=== PATIENT | male | born 1935 | race Caucasian/White ===

== ENCOUNTER 2017-05-28 11:15 | Inpatient (IN) ==
[2017-05-23 13:04] LABS: Appearance,Urine CLEAR; Bilirubin,Urine NEG (NEG); Color,Urine YELLOW; Glucose,Urine (UA) NEGATIVE (NEG); Leukocyte Esterase,Urine NEG /uL (NEG); Nitrate,Urine NEG (NEG); Protein,Urine NEG (NEG); Specific Gravity,Urine 1.019 (1.000-1.035); Urine Blood NEG mg/dL (<0.03); Urobilinogen,Urine NEG (NEG)
[2017-05-23 15:09] LABS: Basophils # (Auto) 0 K/mcL (0.0-0.3); Basophils % (Auto) 0.5 % (0.0-2.0); Eosinophils # (Auto) 0.4 K/mcL (0.0-0.7); Eosinophils % (Auto) 4.7 % (0.0-7.0); Lymphocytes # (Auto) 2.1 K/mcL (1.5-4.8); Lymphocytes % (Auto) 22.4 % (15.5-49.0); Mean Cell Volume 95.3 fL (80.0-100.0); Mean Corpuscular HGB Conc 33.5 g/dL (31.0-36.0); Mean Corpuscular Hemoglobin 31.9 pg (26.0-34.0); Monocytes % (Auto) 10.4 % (1.0-12.0); Platelet Count 265 K/mcL (140-440); RBC 3.83 M/mcL (4.50-5.90); Red Cell Distribution Width 14.9 % (11.5-14.5)
[2017-05-23 15:57] LABS: Blood Urea Nitrogen 18 mg/dl (8-23)
[~2017-05-28 11:15] MED LIST: CELECOXIB 200 MG CAPSULE PO SCH; GLYCOPYRROLATE 0.2 MG/ML VIAL IV ONE; KETAMINE 100 MG/ML ML IV ONE; LIDOCAINE HCL/PF 100 MG/5 ML SYRINGE IV ONE; MIDAZOLAM 5 MG/5 ML VIAL IV ONE; ONDANSETRON 4 MG/2 ML VIAL IV ONE; PHENYLEPHRINE 10 MG/ML VIAL IV ONE; PREGABALIN 75 MG CAPSULE PO SCH; PROPOFOL 200 MG/20 ML VIAL IV ONE; SUCCINYLCHOLINE 20 MG/ML ML IV ONE; TRANEXAMIC ACID 1,000 MG/10 ML VIAL IV ONE; ceFAZolin 1 GM VIAL IV SCH; fentaNYL 100 MCG/2 ML VIAL IV ONE; oxyCODONE 10 MG TAB.ER.12H PO SCH
[2017-05-28] MEDS ORDERED: GENTAMICIN SULFATE 800 MG/20 ML VIAL IR ONE (13:09)
[2017-05-28] MEDS ORDERED: IPRATROPIUM/ALBUTEROL 3 ML AMPUL.NEB NEB PRN (14:56)
[2017-05-28] MEDS ORDERED: ONDANSETRON 4 MG/2 ML VIAL IV PRN ×2 (14:56→15:26)
[2017-05-28] MEDS ORDERED: MEPERIDINE 25 MG/ML SYRINGE IV PRN (14:56)
[2017-05-28] MEDS ORDERED: METHOCARBAMOL 1,000 MG/10 ML VIAL IV PRN (14:56)
[2017-05-28] MEDS ORDERED: LACTATED RINGERS 1,000 ML IV SCH (15:00)
--- NOTE | 2017-05-28 15:25 | Discharge Summary ---
Ortho Discharge - TSA - Patient Instructions Diet: Regular Diet Activity: non weight bearing Total Shoulder Protocol: Leave immobilizer in place except for bathing and ROM. Abduction pillow. Continue to wear sling until seen by physician. Codman Pendulum : These exercises use momentum produced by your body to move your shoulder joint. Bend your knees and shift your weight to your front leg, then back, allowing your arm to swing in the same directions. Using the same technique, alternately shift your weight between your right and left legs, allowing your arm to swing from side to side. These exercises are also performed in counterclockwise and clockwise circular motions. Typically these exercises are performed several times per day, for a set number repetitions or minutes, such as 20 times in a row or 5 minutes at a time. Dressing Care: May shower in 2 days - Follow Up Plan Follow Up Appointments: Rose Marie Vega PA-C [Physician Apprentice Painter Hand] - 06/12/17 8:30 am Disposition: Hospice - Home Prognosis: Good Rehab Potential: Good I certify that the patient requires SNF services: No Overall status at discharge: patient is progressing back to baseline
--- NOTE | 2017-05-28 15:25 | Brief Operative Note ---
Date of procedure: 05/28/17 Pre-op diagnosis: right shoulder osteoarthritis, biceps tendonitis Post-op diagnosis: same Procedure: right total shoulder arthroplasty, biceps reinsertion Grafts/Implants: Yes Anesthesia: GETA Complications: none Surgeon: Pk Capone [employer] Hearings Officer: Rose Marie Vega Estimated blood loss (cc): 100 Specimens Removed/Pathology: none sent Condition: stable Disposition: PACU
[2017-05-28] MEDS ORDERED: BISACODYL 10 MG SUPP.RECT PR PRN (15:26)
[2017-05-28] MEDS ORDERED: METHOCARBAMOL 750 MG TABLET PO PRN (15:26)
[2017-05-28] MEDS ORDERED: KETOROLAC 15 MG/ML VIAL IV PRN (15:26)
[2017-05-28] MEDS ORDERED: ONDANSETRON ODT 4 MG TABLET SL PRN (15:26)
[2017-05-28] MEDS ORDERED: TRANEXAMIC ACID 1,000 MG/10 ML VIAL IV ONE (15:26)
[2017-05-28] MEDS ORDERED: FLEETS ADULT ENEMA PR PRN (15:26)
[2017-05-28] MEDS ORDERED: HYDROmorphone 2 MG/ML SYRINGE IV PRN (15:26)
[2017-05-28] MEDS ORDERED: POLYETHYLENE GLYCOL 3350 17 GM PACKET PO PRN (15:26)
[2017-05-28] MEDS ORDERED: BENZOCAINE/MENTHOL 1 LOZENGE PO PRN (15:26)
[2017-05-28] MEDS ORDERED: MAGNESIUM HYDROXIDE 30 ML ORAL.SUSP PO PRN (15:26)
--- NOTE | 2017-05-28 16:17 | Operative Note ---
DATE OF OPERATION: 05/28/2017 PREOPERATIVE DIAGNOSIS: 1. Right shoulder osteoarthritis. 2. Right shoulder proximal biceps tendonitis. POSTOPERATIVE DIAGNOSIS: 1. Right shoulder osteoarthritis. 2. Right shoulder proximal biceps tendonitis. PROCEDURES: 1. Right total shoulder arthroplasty. 2. Right shoulder proximal biceps soft tissue tendon tenodesis. SURGEON: Ghanshyam Capone M.D. FISH AND WILDLIFE TECHNICIAN SURGEON: Rose Marie Vega PA-C ANESTHESIA: General. ESTIMATED BLOOD LOSS: 100 mL COMPLICATIONS: None noted. SPECIMENS REMOVED: None. DRAINS: None. IMPLANTS: DePuy CMW2 bone cement 20 grams x1, DePuy Global anchor peg glenoid, Premieron X-linked polyethylene size 48, DePuy global unite anatomic proximal body 135 degrees size 15 porocoat, DePuy Global unite porocoat standard stem size 14, DePuy Global unite standard humeral head size 48 x 21. INDICATIONS: The patient has had a longstanding history of worsening pain in the shoulder that has failed conservative treatment. Radiographs have confirmed advanced degenerative joint disease. After a long discussion about treatment options, the patient elected to proceed with a total shoulder arthroplasty. The risks and benefits were discussed with the patient in detail including, but not limited to, the risks of anesthesia, problems with the heart or lungs related to anesthesia, infection, compromise or injury to the nerves and blood vessels, deep venous thrombosis, pulmonary embolism, pneumonia, continued pain after surgery, worsening pain or symptoms after surgery, swelling, loss of motion, instability, fracture, arm length discrepancy, and need for repeat surgery. DESCRIPTION OF PROCEDURE: The patient was seen in the pre-anesthesia waiting room where all questions were answered and the correct side and site were identified and marked. The patient was transferred to the operating room and administered the anesthetic and given pre-operative antibiotics. A time-out was then called. The patient was placed in the modified beach chair position with all prominences well-padded. The extremity was prepped and draped from the fingers up to the neck. A standard deltopectoral skin incision was created. Dissection was carried down to the deltopectoral groove and the cephalic vein was isolated medially and retracted laterally with the deltoid. Retractors were placed and the coracobrachialis was split up to the coracoacromial ligament allowing retraction of the conjoined tendon. We split the subscapularis 1 cm medial to the bicipital groove and extended the split into the rotator interval. This was tagged for later repair. The biceps was cut and a soft tissue tenodesis was performed into the anterior shoulder with #2 FiberWire. A capsular release was performed in a posterior subperiosteal direction along the humerus. The humeral head was then dislocated. Osteophytes were removed around the humeral neck and a capsular release was performed. Attention was then turned to the glenoid. Retractors were placed for optimal visualization and the labrum was excised in its entirety. A centralizing Steinmann pin was placed just into the posterior inferior quadrant in a standard fashion. We reamed over the pin to remove all the cartilage and get to a good base for the prosthesis. The drill was then placed over for the central peg. The glenoid was sized and surface was inspected to confirm conformity. The template base-plate was used to drill the three additional pegs, anchoring each with the anti-rotation peg. All bleeding was stopped with epinephrine soaked sponges. Next, we then cemented the anchor peg glenoid with DBX bone paste placed around the anchor peg and Palacos cement in the three additional peg holes. We allowed the cement to harden and checked the stability and placement of the glenoid. Attention was then turned back to the humerus. The humeral head was sized and version of the head was matched. We placed the guide evaluating the quadrants and drilled a pin through the center of the head exiting the lateral cortex of the proximal humerus. We then reamed the humeral head with appropriate depth. The bone quality was adequate. The humeral head trial was placed and fit appropriately. The cruciate punch was placed into the drilled canal. The press fit humeral prosthesis was impacted into place. A final check confirmed adequate motion, tension, and stability. We irrigated with 3 liters of antibiotic saline and closed the subscapularis with # 2 FiberWire. We irrigated again and closed the deltopectoral interval with several # 0 Vicryl figure of eight sutures. The subcutaneous layer was closed with 2-0 Vicryl and the skin was closed with 4-0 Monocryl in a subcuticular fashion. A sterile pressure dressing was applied and the patient was placed into an abduction sling. All needle and sponge counts were correct. The patient was transferred to the recovery room in stable condition. SELINA:[email or web address] Job ID: [id number] Doc ID: [id number] Ghanshyam Capone MD
[2017-05-28] MEDS: fentaNYL 100 MCG/2 ML VIAL IV PRN ×2 (16:20→16:30)
--- NOTE | 2017-05-28 16:26 | XRay Report ---
CLINICAL INFORMATION: Postsurgical follow-up TECHNIQUE: AP and axillary views of the right shoulder COMPARISON: Preoperative evaluation dated 05/07/2016 FINDINGS: Status post right shoulder arthroplasty. Normal anatomic alignment. There is postsurgical soft tissue gas IMPRESSION: Status post right shoulder arthroplasty Interpreted and Authenticated by: Pk Head 05/28/17
[2017-05-28] MEDS: sitaGLIPtin 50 MG TABLET PO SCH (18:23)
[2017-05-28] MEDS: metFORMIN 500 MG TABLET PO SCH (18:23)
[2017-05-28] MEDS: 0.9 % SODIUM CHLORIDE 1,000 ML IV SCH ×2 (18:30→23:45)
[2017-05-28] MEDS ORDERED: DEXTROSE 50% 50 ML VIAL IV PRN (19:33)
[2017-05-28] MEDS ORDERED: DEXTROSE 31 GM ORAL.SUSP PO PRN (19:33)
[2017-05-28] MEDS ORDERED: SENNOSIDES 1 TABLET PO SCH (21:00)
[2017-05-28] MEDS ORDERED: INSULIN GLARGINE, HUMAN 1 UNIT/0.01 ML SQ SCH (21:00)
[2017-05-28] MEDS ORDERED: FERROUS SULFATE 325 MG TABLET PO SCH (21:00)
[2017-05-28] MEDS: DOCUSATE SODIUM 100 MG CAPSULE PO SCH (21:33)
[2017-05-28] MEDS: HYDROcodone/APAP 10/325MG TABLET PO PRN (21:43)
[2017-05-28] MEDS: ceFAZolin 1 GM VIAL IV SCH (21:49)
[2017-05-28] MEDS: 0.9 % SODIUM CHLORIDE 10 ML SYRINGE IV SCH (22:10)
[2017-05-28] MEDS: INSULIN LISPRO 1 UNIT/0.01 ML UNIT SQ SCH (22:13)
[2017-05-29] MEDS: HYDROcodone/APAP 10/325MG TABLET PO PRN (01:37)
[2017-05-29] MEDS: ceFAZolin 1 GM VIAL IV SCH (05:15)
[2017-05-29] MEDS: 0.9 % SODIUM CHLORIDE 10 ML SYRINGE IV SCH (05:15)
--- NOTE | 2017-05-29 06:54 | Orthopedic Progress Note ---
Subjective Patient information: Note initiated : 05/29/17 at 6:52 am Service Date, if different from initiated Date: [] Patient: Edmar Garcia 82 y/o M admitted on 05/28/17 for Right Total Shoulder Arthroplasty and Poss Open . Chief Complaint: [s/p right TSA] Patient is POD #1 s/p right TSA. He is doing quite well this morning. He reports minimal pain and offers no questions or concerns. He denies numbness, tingling, chest pain, SOB. Objective Vital signs: Vital Signs Temp Pulse Resp BP Pulse Ox 05/29/17 04:30 98.8 F 79 16 127/65 91 05/28/17 23:47 98.7 F 83 12 132/73 93 05/28/17 19:41 96 05/28/17 18:56 97.8 F 75 14 133/72 97 05/28/17 18:12 174/77 96 05/28/17 17:55 143/77 97 05/28/17 17:40 128/74 97 05/28/17 17:26 151/67 96 05/28/17 17:15 14 97 05/28/17 17:10 167/83 95 05/28/17 16:55 171/81 93 05/28/17 16:50 97.8 F 71 16 178/82 98 05/28/17 16:34 96.9 F L 68 16 154/73 93 05/28/17 16:20 96.9 F L 70 16 173/80 99 05/28/17 16:05 96.9 F L 73 16 177/80 100 05/28/17 16:00 96.9 F L 74 16 149/72 100 05/28/17 15:55 96.9 F L 75 16 126/60 100 05/28/17 15:50 96.9 F L 60 16 114/53 99 05/28/17 12:00 98.9 F 63 18 150/71 93 Intake and Output 05/28/17 05/29/17 05/29/17 21:59 05:59 13:59 Intake Total 1900 / 1900 1520 / 1520 Output Total 225 / 225 200 / 200 Balance 1675 / 1675 1320 / 1320 Intake: IV 1000 / 1000 Sodium Chloride 0.9% 1,000 ml @ 1000 / 1000 125 mls/hr IV .Q8H CANDIE Rx#: [id number] Oral 520 / 520 IV - Manual Only 1900 / 1900 Output: Void Amount 225 / 225 200 / 200 Other: Weight 203 lb 6.4 oz Intake & Output: Intake & Output 05/28/17 05/29/17 05/29/17 21:59 05:59 13:59 Intake Total 1900 / 1900 1520 / 1520 Output Total 225 / 225 200 / 200 Balance 1675 / 1675 1320 / 1320 Weight 203 lb 6.4 oz Intake: IV 1000 / 1000 Sodium Chloride 0.9% 1,000 ml @ 1000 / 1000 125 mls/hr IV .Q8H CANDIE Rx#: [id number] Oral 520 / 520 IV - Manual Only 1900 / 1900 Output: Void Amount 225 / 225 200 / 200 Incision: Yes healing, Yes clean and dry Incision clean and dry: Yes Dressing: Yes clean, Yes dry, Yes intact Weight bearing status: non (sling at all times except as listed in instructions) Neurological exam IM: Yes alert, Yes oriented X3, Yes motor sensory intact, Yes neurovascular intact Additional Comments: radial pulses 2+ b/l. Sensory throughout b/l UE grossly intact to light touch. Motor grossly intact. Full AROM b/l elbows, wrist, hand/left shoulder. Extremities exam IM: No calf tenderness, Yes neurovascular intact - Periperhal Pulses Peripheral pulses: 2+: radial (L), radial (R) - Diagnostic Results Shoulder x-ray: image reviewed - Labs CBC & BMP: 05/29/17 04:10 05/23/17 11:38 Labs: 05/29/17 05/23/17 04:10 11:38 Hgb 10.7 L 12.2 L Hct 32.6 L 36.5 L
[2017-05-29] MEDS: INSULIN LISPRO 1 UNIT/0.01 ML UNIT SQ SCH (08:24)
[2017-05-29] MEDS: metFORMIN 500 MG TABLET PO SCH (08:24)
[2017-05-29] MEDS: DOCUSATE SODIUM 100 MG CAPSULE PO SCH (08:25)
[2017-05-29] MEDS: sitaGLIPtin 50 MG TABLET PO SCH (08:27)
[2017-05-29] MEDS ORDERED: ASPIRIN 81 MG TAB.CHEW PO SCH (09:00)
[2017-05-29] MEDS ORDERED: SERTRALINE 50 MG TABLET PO SCH (09:00)
[2017-05-29] MEDS ORDERED: LISINOPRIL 20 MG TABLET PO SCH (09:00)
== END 2017-05-29 10:40 | disposition hospice, home (50) | DRG 483 ==
LOC: ICU 11:15
PROVIDERS: ADMIT Orthopaedic Surgery Sports Medicine; ATTEND Orthopaedic Surgery Sports Medicine